=== PATIENT | female | born 1995 | race Caucasian/White ===

== ENCOUNTER 2017-05-27 00:33 | Emergency (ER) | payer OTHER ==
[2017-05-27 00:46] VITALS: BP 121/71; PULSE 109; RESP 20; TEMP 100.9
[2017-05-27] MEDS ORDERED: IBUPROFEN 600 MG TAB PO STA (00:52)
[2017-05-27] MEDS ORDERED: ACETAMINOPHEN TAB 500 MG TAB PO STA (00:52)
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
== END 2017-05-27 01:19 | disposition home or self-care (01) ==
LOC: EC 00:33
DX: J02.0 Streptococcal pharyngitis (principal)
CPT/HCPCS: 87430; 99283

== ENCOUNTER 2017-07-23 19:09 | Emergency (ER) | payer OTHER ==
[2017-07-23 19:16] VITALS: BP 120/83; PULSE 95; RESP 18; TEMP 99
[2017-07-23] MEDS ORDERED: AZITHROMYCIN 250 MG TAB PO STA (19:31)
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
== END 2017-07-23 19:42 | disposition home or self-care (01) ==
LOC: EC 19:09
DX: J06.9 Acute upper respiratory infection, unspecified (principal)
CPT/HCPCS: 99283